=== PATIENT | female | born 1960 | race Caucasian/White ===

== ENCOUNTER → 2016-11-15 | Outpatient (CLI) | payer OTHER ==
[~2016-11-15] MED LIST: ALDACTONE PO; BENADRYL PO; BENADRYL25 M1 PO; CALCIUM 500 + D1 TAB PO; LODINE PO; MEDROL DOSEPAK4 MG PO; TYLENOL ARTHRITES
== END | disposition home or self-care (01) ==
LOC: CLAB 16:56
DX: J40 Bronchitis, not specified as acute or chronic (principal); R05 Cough
CPT/HCPCS: 87070; 87205